=== PATIENT | female | born 1995 | race African-American/Black ===

== ENCOUNTER 2023-04-24 20:11 | Emergency (ER) | payer BC ==
[~2023-04-24] VITALS: Ht 165.1 cm; Wt 226.0 kg
[2023-04-24 20:14] VITALS: BP 135/86; TEMP 98.1; O2SAT 97
[2023-04-24 20:15] VITALS: PULSE 86; RESP 16
[2023-04-25 16:02] LABS: HEPATITIS B SURFACE ANTIGEN NEGATIVE
[2023-04-25 16:30] LABS: HEPATITIS C VIR.AB 0.12 INDEXVAL (0.00-0.80)
[2023-04-26 13:07] LABS: HIV SCREEN 4G Non Reactive (Non Reactive)
== END 2023-04-24 21:18 | disposition home or self-care (01) ==
LOC: ER 20:20
DX: R68.89 Other general symptoms and signs (principal)
CPT/HCPCS: 36415; 86803; 87340; 87389; 99281

== ENCOUNTER 2023-06-12 14:44 | Emergency (ER) | payer SELFPAY ==
[~2023-06-12] VITALS: Ht 167.6 cm; Wt 100.0 kg
[2023-06-12 15:18] VITALS: O2SAT 100
[2023-06-12 20:01] VITALS: BP 124/86; PULSE 80; RESP 16; TEMP 98.6
[2023-06-12 20:17] LABS: HEPATITIS B SURFACE AB > 1000.0 mIU/mL
[2023-06-12 20:28] LABS: HEPATITIS B SURFACE ANTIGEN NEGATIVE
[2023-06-12 20:56] LABS: HEPATITIS C VIR.AB 0.07 INDEXVAL (0.00-0.80)
[2023-06-14 05:11] LABS: *HEPATITIS B CORE ANTIBODY Negative (Negative); HIV SCREEN 4G Non Reactive (Non Reactive)
== END 2023-06-12 20:03 | disposition home or self-care (01) ==
LOC: ER 14:46
DX: S69.82XA Other specified injuries of left wrist, hand and finger(s), initial encounter (principal); W26.8XXA Contact with other sharp object(s), not elsewhere classified, initial encounter; Y93.89 Activity, other specified; Y92.89 Other specified places as the place of occurrence of the external cause; Y99.8 Other external cause status
CPT/HCPCS: 36415; 87389; 99283